=== PATIENT | female | born 1980 | race Hispanic/Latino ===

== ENCOUNTER → 2017-04-16 | Outpatient (CLI) | payer OTHER ==
[2017-04-16 16:29] LABS: BASOPHILS % (AUTO) 0.9 % (0.0-5.0); EOSINOPHILS % (AUTO) 2.7 % (0.0-8.0); HEMATOCRIT 37.9 % (36-48); LYMPHOCYTES % (AUTO) 31.3 % (21.0-51.0); MEAN CORPUSCULAR HEMOGLOBIN 29.5 pg (27.0-33.0); MEAN CORPUSCULAR HGB CONC 34.7 g/dL (32.0-36.0); MONOCYTES % (AUTO) 10.3 % (3.0-13.0); NEUTROPHILS % (AUTO) 54.8 % (40.0-77.0); PLATELET COUNT (AUTO) 264 K/uL (130-400); RED BLOOD CELL COUNT(AUTO) 4.45 MIL/uL (4.00-5.50); WHITE BLOOD COUNT (AUTO) 6.8 K/uL (4.8-10.8)
== END | disposition home or self-care (01) ==
LOC: LAB 15:54
PROVIDERS: ATTEND Specialist
DX: D64.9 Anemia, unspecified (principal)
CPT/HCPCS: 36415; 84439; 84443; 84481; 84703; 85025

== ENCOUNTER → 2017-04-27 | Outpatient (CLI) | payer OTHER ==
[2017-04-27 07:36] LABS: ALBUMIN 3.8 g/dL (3.5-5.0); BILIRUBIN,TOTAL 0.9 mg/dL (0.2-1.0); CREATININE 0.7 mg/dL (0.5-1.5); POTASSIUM 3.8 mmol/L (3.5-5.1); TOTAL PROTEIN, SERUM 7.7 g/dL (6.0-8.3)
[2017-04-28 08:18] LABS: VITAMIN D, 25-HYDROXY 9.5 ng/mL (30.0-100.0)
== END | disposition home or self-care (01) ==
LOC: LAB 07:01
PROVIDERS: ATTEND Nurse Practitioner Adult Health
DX: Z00.01 Encounter for general adult medical examination with abnormal findings (principal); R79.89 Other specified abnormal findings of blood chemistry
CPT/HCPCS: 36415; 80053; 80061; 82306; 82652

== ENCOUNTER 2018-02-24 10:14 | Emergency (ER) | payer OTHER | END 2018-02-24 11:16 | disposition home or self-care (01) | LOC: EDH 10:14 | DX: S62.662A Nondisplaced fracture of distal phalanx of right middle finger, initial encounter for closed fracture (principal); Z90.49 Acquired absence of other specified parts of digestive tract; W23.0XXA Caught, crushed, jammed, or pinched between moving objects, initial encounter; Y93.89 Activity, other specified; Y92.89 Other specified places as the place of occurrence of the external cause; Y99.8 Other external cause status | CPT/HCPCS: 29130; 73130 ==

== ENCOUNTER → 2018-10-28 | Outpatient (CLI) | payer OTHER ==
[~2018-10-28] MED LIST: GADODIAMIDE 10 MMOL/20 ML VIAL IV ONE
== END | disposition home or self-care (01) ==
LOC: RAH 13:26
PROVIDERS: ATTEND Psychiatry & Neurology Neurology
DX: G43.909 Migraine, unspecified, not intractable, without status migrainosus (principal)
CPT/HCPCS: 70553; A9579

== ENCOUNTER → 2018-12-19 | Outpatient (CLI) | payer OTHER | END | disposition home or self-care (01) | LOC: RAH 12:51 | PROVIDERS: ATTEND Specialist | DX: N63.23 Unspecified lump in the left breast, lower outer quadrant (principal); N63.41 Unspecified lump in right breast, subareolar; R92.2 Inconclusive mammogram | CPT/HCPCS: 76641; 77066 ==

== ENCOUNTER → 2019-08-04 | Outpatient (CLI) | payer OTHER ==
[2019-08-04 09:49] LABS: BASOPHILS % (AUTO) 0.5 % (0.0-5.0); EOSINOPHILS % (AUTO) 3.4 % (0.0-8.0); HEMATOCRIT 40.8 % (36-48); LYMPHOCYTES % (AUTO) 29.2 % (21.0-51.0); MEAN CORPUSCULAR HGB CONC 32.1 g/dL (32.0-36.0); MEAN CORPUSCULAR VOLUME 87.2 fL (79-99); MONOCYTES % (AUTO) 10.1 % (3.0-13.0); NEUTROPHILS % (AUTO) 56.6 % (40.0-77.0); PLATELET COUNT (AUTO) 246 K/uL (130-400); RED BLOOD CELL COUNT(AUTO) 4.68 MIL/uL (4.00-5.50); RED CELL DISTRIBUTION WIDTH 12.5 % (11.0-15.5); WHITE BLOOD COUNT (AUTO) 6.2 K/uL (4.8-10.8)
[2019-08-04 10:18] LABS: HEMOGLOBIN A1C 5.3 % (4.0-6.0)
[2019-08-04 10:20] LABS: ALBUMIN 3.9 g/dL (3.5-5.0); BILIRUBIN,TOTAL 1.1 mg/dL (0.2-1.0); CREATININE 0.8 mg/dL (0.5-1.5); POTASSIUM 4.1 mmol/L (3.5-5.1); THYROID STIMULATING HORMONE 1.51 uIU/mL (0.36-3.74); TOTAL PROTEIN, SERUM 7.7 g/dL (6.0-8.3)
== END | disposition home or self-care (01) ==
LOC: LAB 08:01
PROVIDERS: ATTEND Specialist
DX: R10.9 Unspecified abdominal pain (principal)
CPT/HCPCS: 36415; 80053; 83036; 84443; 85025

== ENCOUNTER → 2020-07-06 | Outpatient (CLI) | payer OTHER ==
[2020-07-06 08:29] LABS: BASOPHILS % (AUTO) 0.5 % (0.0-5.0); EOSINOPHILS % (AUTO) 2.6 % (0.0-8.0); HEMATOCRIT 39.8 % (36-48); LYMPHOCYTES % (AUTO) 32.1 % (21.0-51.0); MEAN CORPUSCULAR HEMOGLOBIN 27.5 pg (27.0-33.0); MEAN CORPUSCULAR HGB CONC 32.4 g/dL (32.0-36.0); MEAN CORPUSCULAR VOLUME 84.9 fL (79-99); MONOCYTES % (AUTO) 11.1 % (3.0-13.0); NEUTROPHILS % (AUTO) 53.4 % (40.0-77.0); PLATELET COUNT (AUTO) 256 K/uL (130-400); RED BLOOD CELL COUNT(AUTO) 4.69 MIL/uL (4.00-5.50); RED CELL DISTRIBUTION WIDTH 12.1 % (11.0-15.5); WHITE BLOOD COUNT (AUTO) 6.1 K/uL (4.8-10.8)
[2020-07-06 08:37] LABS: HEMOGLOBIN A1C 5.3 % (4.0-6.0)
[2020-07-06 08:49] LABS: ALBUMIN 3.9 g/dL (3.5-5.0); CREATININE 0.7 mg/dL (0.5-1.5); POTASSIUM 4.5 mmol/L (3.5-5.1); THYROID STIMULATING HORMONE 0.75 uIU/mL (0.36-3.74); TOTAL PROTEIN, SERUM 7.8 g/dL (6.0-8.3)
== END | disposition home or self-care (01) ==
LOC: LAB 08:06
PROVIDERS: ATTEND Specialist
DX: Z01.812 Encounter for preprocedural laboratory examination (principal)
CPT/HCPCS: 36415; 80053; 80061; 83036; 84443; 85025

== ENCOUNTER → 2020-09-14 | Outpatient (CLI) | payer OTHER | END | disposition home or self-care (01) | LOC: LAB 10:30 | PROVIDERS: ATTEND Internal Medicine Cardiovascular Disease | DX: Z20.822 Contact with and (suspected) exposure to COVID-19 (principal) | CPT/HCPCS: 87635; C9803 ==

== ENCOUNTER → 2021-06-17 | Outpatient (CLI) | payer OTHER ==
[~2021-06-17] MED LIST changes: -GADODIAMIDE 10 MMOL/20 ML VIAL IV ONE; +GADOTERATE MEGLUMINE 10 MMOL/20 ML VIAL IV ONE
== END ==
LOC: RAH 12:47
PROVIDERS: ATTEND Obstetrics & Gynecology
DX: R92.0 Mammographic microcalcification found on diagnostic imaging of breast (principal)
CPT/HCPCS: 77049; A9575

== ENCOUNTER → 2021-06-29 | Outpatient (CLI) | payer OTHER ==
[~2021-06-29] MED LIST changes: -GADOTERATE MEGLUMINE 10 MMOL/20 ML VIAL IV ONE; +LIDOCAINE HCL-MPF 1% 2ML VIAL ONE
[2021-06-29 10:42] LABS: INR 0.93 (0.85-1.15)
[2021-06-29 10:43] LABS: PARTIAL THROMBOPLASTIN TIME 28.8 SEC (26.3-35.5)
== END | disposition home or self-care (01) ==
LOC: RAH 09:09
PROVIDERS: ATTEND Obstetrics & Gynecology
DX: C50.512 Malignant neoplasm of lower-outer quadrant of left female breast (principal); Z79.01 Long term (current) use of anticoagulants
CPT/HCPCS: 19083; 36415; 85610; 85730; A4215 ×3; J3490

== ENCOUNTER → 2021-07-26 | Outpatient (CLI) | payer OTHER | END | disposition home or self-care (01) | LOC: RAH 12:54 | PROVIDERS: ATTEND Surgery | DX: C50.919 Malignant neoplasm of unspecified site of unspecified female breast (principal); R59.0 Localized enlarged lymph nodes | CPT/HCPCS: 76882 ==

== ENCOUNTER → 2021-08-23 | Outpatient (CLI) | payer OTHER ==
[~2021-08-23] MED LIST changes: +CETI10CA5 PO; -LIDOCAINE HCL-MPF 1% 2ML VIAL ONE; +LIDOCAINE/PRILOCAINE CREAM 5GM TUBE TP ONE
== END | disposition home or self-care (01) ==
LOC: RAH 14:41
PROVIDERS: ATTEND Student in an Organized Health Care Education/Training Program
DX: C50.912 Malignant neoplasm of unspecified site of left female breast (principal)
CPT/HCPCS: 78195; A9541; J3490

== ENCOUNTER 2021-08-24 05:47 | Observation (INO) | payer OTHER ==
[2021-08-22 15:33] LABS: BASOPHILS % (AUTO) 0.5 % (0.0-5.0); EOSINOPHILS % (AUTO) 3.7 % (0.0-8.0); HEMATOCRIT 37.1 % (36-48); LYMPHOCYTES % (AUTO) 29.6 % (21.0-51.0); MEAN CORPUSCULAR HEMOGLOBIN 27.8 pg (27.0-33.0); MEAN CORPUSCULAR HGB CONC 32.6 g/dL (32.0-36.0); MEAN CORPUSCULAR VOLUME 85.1 fL (79-99); MONOCYTES % (AUTO) 9.8 % (3.0-13.0); NEUTROPHILS % (AUTO) 56.2 % (40.0-77.0); PLATELET COUNT (AUTO) 261 K/uL (130-400); RED BLOOD CELL COUNT(AUTO) 4.36 MIL/uL (4.00-5.50); RED CELL DISTRIBUTION WIDTH 12.7 % (11.0-15.5); WHITE BLOOD COUNT (AUTO) 8.1 K/uL (4.8-10.8)
[2021-08-22 15:44] LABS: INR 0.93 (0.85-1.15); PROTHROMBIN TIME 9.9 SEC (9.6-11.6)
[2021-08-22 15:45] LABS: PARTIAL THROMBOPLASTIN TIME 27.1 SEC (26.3-35.5)
[2021-08-22 15:48] LABS: ALBUMIN 3.5 g/dL (3.5-5.0); CREATININE 0.6 mg/dL (0.5-1.5); POTASSIUM 4.1 mmol/L (3.5-5.1); TOTAL PROTEIN, SERUM 7.2 g/dL (6.0-8.3)
[2021-08-23] MEDS: CEFAZOLIN SODIUM 1 GM VIAL IVP SCH (07:00)
[2021-08-23 09:09] VITALS: BP 110/61
[~2021-08-24] VITALS: Ht 157.5 cm; Wt 73.7 kg
[2021-08-24] VITALS (22 sets, daily range): BP systolic 89–123; BP diastolic 58–71
[~2021-08-24 05:47] MED LIST changes: -LIDOCAINE/PRILOCAINE CREAM 5GM TUBE TP ONE
[2021-08-24] MEDS ORDERED: LACTATED RINGERS 1000ML 1,000 ML IV ONE (06:59)
[2021-08-24] MEDS ORDERED: METHYLENE BLUE 5 MG/ML AMP ONE (07:00)
[2021-08-24] MEDS ORDERED: GENTAMICIN SULFATE 80 MG/2 ML VIAL ONE (07:00)
[2021-08-24] MEDS ORDERED: LIDOCAINE 1%-EPI 1:100,000 20 ML VIAL IJ ONE (07:00)
[2021-08-24] MEDS ORDERED: CEFAZOLIN SODIUM 1 GM VIAL ONE ×3 (07:00→12:01)
[2021-08-24] MEDS ORDERED: NITROGLYCERIN 1GM OINT 1 INCH/1GM TD ONE ×2 (07:07)
[2021-08-24] MEDS ORDERED: CALDOLOR 800MG+NS 250ML 250 ML IV ONE (07:10)
[2021-08-24] MEDS ORDERED: SCOPOLAMINE HYDROBROMIDE 1 EACH ADH..PATCH TD ONE (07:13)
[2021-08-24] MEDS ORDERED: ONDANSETRON 4MG INJ ONE (07:16)
[2021-08-24] MEDS ORDERED: ROCURONIUM 10MG/1ML SYR 10 MG/ML ML ONE (07:17)
[2021-08-24] MEDS ORDERED: MIDAZOLAM HCL 1 MG/ML 5ML VIAL ONE (07:17)
[2021-08-24] MEDS ORDERED: PROPOFOL 10 MG/ML 20ML VIAL IV ONE (07:17)
[2021-08-24] MEDS ORDERED: FENTANYL CITRATE PF 50 MCG/1 ML 2ML VIAL ONE (07:18)
[2021-08-24] MEDS ORDERED: MAGNESIUM SULFATE 1 GM/2 ML VIAL ONE (07:23)
[2021-08-24] MEDS ORDERED: PROPOFOL 1000 MG/100 ML 100 ML IV ONE ×2 (07:23→11:09)
[2021-08-24] MEDS ORDERED: KETAMINE 50MG/ML SYRINGE 50 MG/ML DISP.SYRIN IV ONE ×2 (07:23→11:08)
[2021-08-24] MEDS ORDERED: ROPIVACAINE 0.5% 5MG/ML 30ML IJ ONE (07:27)
[2021-08-24] MEDS ORDERED: CISATRACURIUM BESYLATE 100 MG in 0.9%NACL 100ML 100 ML IV SCH (08:00)
[2021-08-24] MEDS ORDERED: BUPIVACAINE LIPOSOME/PF 266 MG/20 ML ML IJ SCH (08:30)
[2021-08-24] MEDS: CEFAZOLIN SODIUM 1 GM VIAL IVP SCH ×2 (09:00→17:24)
[2021-08-24] MEDS ORDERED: FENTANYL CITRATE PF 50 MCG/1 ML 5ML AMP IV ONE (09:13)
[2021-08-24] MEDS ORDERED: GLYCOPYRROLATE 1 MG/5 ML SYRINGE ONE (13:00)
[2021-08-24] MEDS ORDERED: NEOSTIGMINE 5MG/5ML SYR IV ONE (13:00)
[2021-08-24] MEDS ORDERED: MEPERIDINE-PF 25 MG/ML SYG IVP PRN (15:00)
[2021-08-24] MEDS: LACTATED RINGERS 1000ML 1,000 ML IV SCH (17:25)
[2021-08-24] MEDS: TRAMADOL HCL 50 MG TABLET PO PRN (18:15)
[2021-08-24] MEDS ORDERED: CETIRIZINE HCL 5 MG TABLET PO SCH (21:00)
[2021-08-25] MEDS: CEFAZOLIN SODIUM 1 GM VIAL IVP SCH ×2 (01:12→09:35)
[2021-08-25 02:46] VITALS: BP 97/56
[2021-08-25 05:40] LABS: MEAN CORPUSCULAR HEMOGLOBIN 28.2 pg (27.0-33.0); MEAN CORPUSCULAR HGB CONC 33.7 g/dL (32.0-36.0); MEAN CORPUSCULAR VOLUME 83.8 fL (79-99); RED BLOOD CELL COUNT(AUTO) 3.58 MIL/uL (4.00-5.50); RED CELL DISTRIBUTION WIDTH 12.6 % (11.0-15.5); WHITE BLOOD COUNT (AUTO) 14.3 K/uL (4.8-10.8)
[2021-08-25 05:46] LABS: CREATININE 0.6 mg/dL (0.5-1.5)
[2021-08-25] MEDS: TRAMADOL HCL 50 MG TABLET PO PRN (06:25)
[2021-08-25] MEDS: LACTATED RINGERS 1000ML 1,000 ML IV SCH (06:25)
[2021-08-25 07:20] VITALS: BP 101/56
[2021-08-25 11:14] VITALS: BP 94/65
== END 2021-08-25 14:20 | disposition home or self-care (01) ==
LOC: DAH 05:47 → DAHIP 05:48 → DAH 05:48 → WSH 14:50
PROVIDERS: ADMIT Student in an Organized Health Care Education/Training Program; ATTEND Student in an Organized Health Care Education/Training Program
DX: C50.912 Malignant neoplasm of unspecified site of left female breast (principal); Z20.822 Contact with and (suspected) exposure to COVID-19; R68.89 Other general symptoms and signs; Z79.899 Other long term (current) drug therapy; Z98.890 Other specified postprocedural states; Z90.49 Acquired absence of other specified parts of digestive tract
CPT/HCPCS: 80053; 84703; 85025; 85610; 85730; 87426; 36415 ×2; 19303; 38525; 96374; 96376; 80048; 85027; A6260; G0378 ×32; G0379; J7030; J7120 ×5; A4344; J3010 ×2; J0690 ×7; J3490 ×4; J2710; J3475; J2250; J1580; J2704 ×3; J2405; Q9968; J2795; J1741; C9290; A6446; A4649 ×4; A4930; L8600; A6213; C9358; A4215; A4223; A4222; A4221; A4663; A6450; A4600

== ENCOUNTER 2021-11-23 06:50 | Day surgery (SDC) | payer OTHER ==
[2021-11-22 09:38] LABS: BASOPHILS % (AUTO) 0.5 % (0.0-5.0); EOSINOPHILS % (AUTO) 4.1 % (0.0-8.0); HEMATOCRIT 39.7 % (36-48); LYMPHOCYTES % (AUTO) 31.6 % (21.0-51.0); MEAN CORPUSCULAR HEMOGLOBIN 26.9 pg (27.0-33.0); MEAN CORPUSCULAR HGB CONC 32.2 g/dL (32.0-36.0); MEAN CORPUSCULAR VOLUME 83.6 fL (79-99); NEUTROPHILS % (AUTO) 54.6 % (40.0-77.0); PLATELET COUNT (AUTO) 244 K/uL (130-400); RED BLOOD CELL COUNT(AUTO) 4.75 MIL/uL (4.00-5.50); RED CELL DISTRIBUTION WIDTH 12.4 % (11.0-15.5); WHITE BLOOD COUNT (AUTO) 5.7 K/uL (4.8-10.8)
[2021-11-22 09:50] LABS: INR 0.93 (0.85-1.15)
[2021-11-22 09:54] LABS: ALBUMIN 3.7 g/dL (3.5-5.0); CREATININE 0.6 mg/dL (0.5-1.5); POTASSIUM 4.2 mmol/L (3.5-5.1); TOTAL PROTEIN, SERUM 7.8 g/dL (6.0-8.3)
[2021-11-22 14:05] VITALS: BP 110/63
[2021-11-23] VITALS (18 sets, daily range): BP systolic 97–129; BP diastolic 51–75
[~2021-11-23] VITALS: Ht 157.5 cm; Wt 72.5 kg
[~2021-11-23 06:50] MED LIST changes: +BUPIVACAINE/EPI/PF 0.5% 30ML VIAL IJ ONE; +CEFAZOLIN SODIUM 1 GM VIAL IVP SCH; +CEFAZOLIN SODIUM 1 GM VIAL ONE; +GENTAMICIN SULFATE 80 MG/2 ML VIAL ONE; +KETAMINE 50MG/ML SYRINGE 50 MG/ML DISP.SYRIN IV ONE; +METHYLENE BLUE 5 MG/ML AMP ONE; +PROPOFOL 1000 MG/100 ML 100 ML IV ONE; +TAMO20TA4 PO
[2021-11-23] MEDS ORDERED: LACTATED RINGERS 1000ML 1,000 ML IV ONE (07:05)
[2021-11-23] MEDS ORDERED: PROPOFOL 10 MG/ML 20ML VIAL IV ONE (07:32)
[2021-11-23] MEDS ORDERED: MIDAZOLAM HCL 1 MG/ML 2ML VIAL ONE (07:33)
[2021-11-23] MEDS ORDERED: FENTANYL CITRATE PF 50 MCG/1 ML 5ML AMP IV ONE (07:33)
[2021-11-23] MEDS ORDERED: ROCURONIUM 10MG/1ML SYR 10 MG/ML ML ONE (07:33)
[2021-11-23] MEDS ORDERED: SCOPOLAMINE HYDROBROMIDE 1 EACH ADH..PATCH TD ONE (07:49)
[2021-11-23] MEDS ORDERED: ONDANSETRON 4MG INJ ONE ×2 (08:00→12:52)
[2021-11-23] MEDS ORDERED: BUPIVACAINE LIPOSOME/PF 266 MG/20 ML ML IJ SCH (08:00)
[2021-11-23] MEDS ORDERED: MIDAZOLAM HCL 1 MG/ML 2ML VIAL IVPB SCH (09:30)
[2021-11-23] MEDS ORDERED: CEFAZOLIN SODIUM 2 GM VIAL IVP ONE (10:47)
[2021-11-23] MEDS ORDERED: DEXAMETHASONE SOD PHOSPHATE 10MG/ML 1ML VIAL ONE (11:00)
[2021-11-23] MEDS ORDERED: EPHEDRINE SULFATE 50 MG/ML AMPULE ONE (11:29)
[2021-11-23] MEDS ORDERED: KETOROLAC 30MG VIAL (30MG/ML) ONE (12:08)
[2021-11-23] MEDS ORDERED: NEOSTIGMINE 5MG/5ML SYR IV ONE (12:16)
[2021-11-23] MEDS ORDERED: GLYCOPYRROLATE 1 MG/5 ML SYRINGE ONE (12:16)
[2021-11-23] MEDS ORDERED: FAMOTIDINE 20MG VIAL IV ONE (12:46)
[2021-11-23] MEDS ORDERED: METOCLOPRAMIDE 10 MG/2 ML VIAL ONE (12:53)
[2021-11-23] MEDS ORDERED: MEPERIDINE-PF 25 MG/ML SYG ONE (12:54)
== END 2021-11-23 14:55 | disposition home or self-care (01) ==
LOC: DAH 06:50
PROVIDERS: ATTEND Plastic Surgery
DX: N64.89 Other specified disorders of breast (principal); Z20.822 Contact with and (suspected) exposure to COVID-19; N64.81 Ptosis of breast; L91.0 Hypertrophic scar; E66.3 Overweight; Z85.3 Personal history of malignant neoplasm of breast; Z79.01 Long term (current) use of anticoagulants; Z90.49 Acquired absence of other specified parts of digestive tract; Z98.890 Other specified postprocedural states; Z80.8 Family history of malignant neoplasm of other organs or systems; Z68.29 Body mass index [BMI] 29.0-29.9, adult
CPT/HCPCS: 80053; 84703; 85025; 85610; 85730; 87426; 36415; 11970; A6260; A4663; J7030; A4606; J7120; J3490 ×5; J3010; J0690 ×2; J1100; J2710; J1580; J2250; J2704 ×2; J2405; Q9968; J1885; J2175; J2765; C9290; A6446; A4649; A4930; C1789; A4215; A4223; A4222; A4221; A6450; A4600

== ENCOUNTER → 2023-05-22 | Outpatient (CLI) | payer OTHER ==
[~2023-05-22] MED LIST changes: -BUPIVACAINE/EPI/PF 0.5% 30ML VIAL IJ ONE; -CEFAZOLIN SODIUM 1 GM VIAL IVP SCH; -CEFAZOLIN SODIUM 1 GM VIAL ONE; -GENTAMICIN SULFATE 80 MG/2 ML VIAL ONE; -KETAMINE 50MG/ML SYRINGE 50 MG/ML DISP.SYRIN IV ONE; -METHYLENE BLUE 5 MG/ML AMP ONE; -PROPOFOL 1000 MG/100 ML 100 ML IV ONE
== END | disposition home or self-care (01) ==
LOC: LAB 08:29
PROVIDERS: ATTEND Obstetrics & Gynecology
DX: N95.1 Menopausal and female climacteric states (principal); N83.299 Other ovarian cyst, unspecified side; E55.9 Vitamin D deficiency, unspecified
CPT/HCPCS: 36415; 82306; 82627; 82670; 83001; 84140; 84403; 86304; 86305

== ENCOUNTER → 2023-05-30 | Outpatient (CLI) | payer OTHER ==
[2023-05-25 14:12] LABS: HUMAN EPIDIDYMIS PROTEIN 4 42.5 pmol/L (0.0-63.6)
== END | disposition home or self-care (01) ==
LOC: RAH 11:19
PROVIDERS: ATTEND Obstetrics & Gynecology
DX: N83.291 Other ovarian cyst, right side (principal); E55.9 Vitamin D deficiency, unspecified; R93.89 Abnormal findings on diagnostic imaging of other specified body structures
CPT/HCPCS: 36415; 76830; 82306; 82627; 82670; 83001; 84140; 84403; 86304; 86305

== ENCOUNTER → 2023-08-15 | Outpatient (CLI) | payer OTHER | END | disposition home or self-care (01) | LOC: LAB 14:02 | PROVIDERS: ATTEND Obstetrics & Gynecology | DX: Z01.419 Encounter for gynecological examination (general) (routine) without abnormal findings (principal) | CPT/HCPCS: 88175 ==

== ENCOUNTER → 2024-11-13 | Outpatient (CLI) | payer OTHER ==
[~2024-11-13] MED LIST changes: -CETI10CA5 PO
--- NOTE | 2024-11-13 12:05 | HMCIMG ---
CLINICAL INDICATION: Long-term current use is of aromatase inhibitors. History of breast cancer COMPARISON: None available TECHNIQUE: Bone densitometry is performed of the lumbar spine and left hip. FINDINGS: Total BMD of lumbar spine is 1.197 g/cm2 with a T-score of 1.4 and Z-score is 1.8. Total BMD of left hip is 0.958 g/cm2 with a T-score of 0.1 and Z-score is 0.4. FRAX SCORE: The 10 year fracture risk for a major osteoporotic fracture and hip fracture not reported T score at or above -1.0 IMPRESSION: 1. Normal lumbar spine and left hip 2. I would recommend follow-up in 2 years World Health Organization criteria for BMD interpretation classify patients as Normal (T-score at or above -1.0), Osteopenic (T-score between -1.0 and -2.5), or Osteoporotic (T-score at or below -2.5). FRAX SCORE: A. All treatment decisions require clinical judgment and consideration of individual patient factors, including patient preferences, comorbidities, previous drug use, risk factors not captured in the FRAX model (e.g., frailty, falls, vitamin D deficiency, increased bone turnover, interval significant decline in bone density) and possible [id number]-estimation of fracture risk by FRAX. B. In addition, the NOF Guide recommends that FDA-approved medical therapies be considered in postmenopausal women and men age greater than or equal to 50 years with a: i. Hip or vertebral (clinical or morphometric) fracture. ii. T-score of less than or equal to -2.5 at the spine or hip. iii. Ten-year fracture probability by FRAX of greater than or equal to 3% for hip fracture of greater than or equal to 20% for major osteoporotic fracture.
== END | disposition home or self-care (01) ==
LOC: RAH 09:59
PROVIDERS: ATTEND Internal Medicine
DX: C50.512 Malignant neoplasm of lower-outer quadrant of left female breast (principal); Z79.811 Long term (current) use of aromatase inhibitors
CPT/HCPCS: 77080